=== PATIENT | female | born 1955 | race Caucasian/White ===

== ENCOUNTER 2016-09-17 12:31 | Inpatient (IN) | payer OTHER ==
[~2016-09-17] VITALS: Ht 152.4 cm; Wt 79.4 kg
[~2016-09-17 12:31] MED LIST: BACTRIM DS TAB1 EACH PO
--- NOTE | 2016-09-17 13:38 | ED GENERAL ADULT ---
History of Present Illness General Chief Complaint: General Adult Stated Complaint: SIB MD COLLADO FOR DIRECT ADMIT FOR ABNORMAL LABS Source: patient Exam Limitations: no limitations Vital Signs & Intake/Output Vital Signs & Intake/Output Vital Signs Date Time Temp Pulse Resp B/P B/P Pulse O2 O2 Flow FiO2 Mean Ox Delivery Rate 09/17 1243 97.9 97 18 115/62 97 Room Air Allergies Coded Allergies: No Known Allergies (07/28/15) Reconcile Medications Cholecalciferol (Vitamin D3) 1,000 UNIT TABLET 1 TAB PO DAILY VITAMIN SUPPORT (Reported) Cyanocobalamin (Vitamin B-12) 1,000 MCG TABLET 1 TAB PO DAILY VITAMIN SUPPORT (Reported) Multivits,Ca,Minerals/Iron/FA (Women's Daily Caplet) 27 MG IRON-400 MCG TABLET 1 TAB PO DAILY VITAMIN SUPPORT (Reported) Olmesartan Medoxomil (Benicar) 20 MG TABLET 1 TAB PO DAILY HEART (Reported) Rosuvastatin Calcium (Crestor) 10 MG TABLET 1 TAB PO DAILY CHOLESTEROL ( Reported) Sitagliptin Phos/Metformin HCl (Janumet 50-1,000 MG Tablet) 50 MG-1,000 MG TABLET 1 TAB PO BID DIABETES (Reported) Triage Note: 60 YO FEMALE TO ER STATES SHE WENT SENT IN BY DR COLLADO FOR LOW H/H AND LOW WBC. DENEIS PAIN, JUST "TIRED" Triage Nurses Notes Reviewed? yes Onset: Gradual Duration: constant Timing: recent history Injury Environment: home Severity: moderate Severity Numbers: 5 HPI: Patient is a 60-year-old female with a past medical history of type 2 diabetes, hypertension hyperlipidemia who presented to emergency room with a four-day history of gradual onset of generalized weakness fatigue and pale complexion noted by family members. Patient was evaluated today by primary care Dr. COLLADO in which he noted critical findings of anemia in which patient was strongly advised to be admitted to [facility] for blood transfusion and receive hematology consultation for concerns of pancytopenia Patient denies any fever chills shortness of breath cough or hemoptysis acute blood loss, nausea vomiting. Last bowel movement was today no blood no melena noted. Patient has never received a colonoscopy. Patient also denies any night sweats or unintentional weight loss. (ELAINE GARRETT,SHADIA) Past History Travel History Traveled to [place] past 21 day No Medical History Any Pertinent Medical History? see below for history Cardiovascular: hyperlipidemia Endocrine: diabetes Surgical History Surgical History: non-contributory Psychosocial History What is your primary language Lao Tobacco Use: Never used Family History Hx Contributory? No (SHADIA CLAY) Review of Systems Review of Systems Constitutional: Reports: weakness. EENTM: Reports: no symptoms. Respiratory: Reports: no symptoms. Cardiovascular: Reports: no symptoms. GI: Reports: no symptoms. Genitourinary: Reports: no symptoms. Musculoskeletal: Reports: no symptoms. Skin: Reports: see HPI. Neurological/Psychological: Reports: no symptoms. Hematologic/Endocrine: Reports: no symptoms. Immunologic/Allergic: Reports: no symptoms. All Other Systems: Reviewed and Negative (SHADIA CLAY) Physical Exam Physical Exam General Appearance: no apparent distress, alert, comfortable Rectal: normal rectal tone, heme negative stool Comments: HEENT: Normal EENT exam, extraocular motion intact, no nystagmus. Pupils equally round and reactive to light and accommodation. Nose is atraumatic. External auditory canal and Tympanic membranes clear. Pharynx normal. No swelling or edema. Neck: Supple, no lymphadenopathy, normal range of motion without pain or tenderness Back: Nontender, no CVA tenderness. Cardiovascular: Regular rate and rhythms no murmurs rubs or gallops, normal JVP Respiratory: Chest nontender. No respiratory distress.breath sounds clear to auscultation bilaterally Abdomen: Soft, nontender nondistended, no appreciable organomegaly. Normal bowel sounds. No ascites Extremity: No edema, no calf tenderness to palpation, normal and equal pulses. Neuro: Alert oriented x3, motor sensory normal, Skin: NOTED PALE COMPLEXION, No appreciable rash on exposed skin, skin is warm and dry. Psych: Mood and affect is normal, memory and judgment is normal. Core Measures ACS in differential dx? No CVA/TIA Diagnosis: No Severe Sepsis Present: No Septic Shock Present: No (SHADIA CLAY) Progress Differential Diagnoses I considered the following diagnoses in my evaluation of the patient: [Cancer, anemia, pancytopenia, chronic blood loss,] Plan of Care: Orders Procedure Date/time Status Regular Diet 09/17 D Active Patient Data 09/17 1430 Active LEUKOCYTE POOR (PACKED CELLS) 09/17 1425 Active OXYGEN SETUP (GEN) 09/17 1423 Active Saline Lock 09/17 1423 Active Admit to inpatient 09/17 1423 Active Vital Signs 09/17 1423 Active Activity/Ambulation 09/17 1423 Active Code Status 09/17 1423 Active EKG 09/17 1336 Active PARTIAL THROMBOPLASTIN TIME 09/17 1322 Complete PROTHROMBIN TIME 09/17 1322 Complete COMPREHENSIVE METABOLIC PANEL 09/17 1322 Complete CBC WITHOUT DIFFERENTIAL 09/17 1322 Complete TYPE & SCREEN (NOT X-MATCH) 09/17 1322 Active Current Medications Sig/Michael Start time Last Medication Dose Stop Time Status Admin Sodium Chloride 1,000 ML BOLUS ONE 09/17 1430 AC 09/17 (Normal Saline 0.9%) 09/17 1629 1440 Laboratory Tests 09/17/16 1338: Anion Gap 8, Estimated GFR > 60, BUN/Creatinine Ratio 25.7 H, Glucose 237 H, Calcium 10.7 H, Total Bilirubin 1.8 H, AST 17, ALT 34, Alkaline Phosphatase 80 , Total Protein 6.4, Albumin 3.8, Globulin 2.6, Albumin/Globulin Ratio 1.5, PT 13.0 H, INR 1.24 H, APTT 29, CBC w Diff MAN DIFF ORDERED, RBC 1.38 L, MCV 110.3 H, MCH 37.3 H, RDW 24.3 H, MPV 7.1 L, Gran % 23.8 L, Lymphocytes % 45.7, Monocytes % 30.3 H, Eosinophils % 0.2, Basophils % 0 L, Absolute Granulocytes 0.5 L, Segmented Neutrophils 25 L, Band Neutrophils 2, Absolute Lymphocytes 1.0 L, Lymphocytes 56 H, Monocytes 17 H, Absolute Monocytes 0.7 H, Absolute Eosinophils 0, Absolute Basophils 0, Platelet Estimate INCREASED, Hypochromic-Microcytic 2+, Macrocytic Cells 3+, Stomatocytes FEW, PUBS MCHC 33.9 Patient was hemodynamically stable upon arrival. Patient was in no apparent distress and has unremarkable physical exam and no findings of acute blood loss. DR. YEBOAH DISCUSSED ADMISSION WITH DR COLLADO. Patient signed blood transfusion consent form (SHADIA CLAY) Initial ED EKG: normal p-waves, normal QRS complex, normal sinus rhythm, 94 BPM, NSR (SHADIA CLAY) Departure Departure Disposition: STILL A PATIENT Condition: Critical Clinical Impression Primary Impression: Pancytopenia Secondary Impressions: Weakness Referrals: TIFF COLLADO MD (PCP/Family) Departure Forms: Customer Survey General Discharge Information Admission Note Spoke With: TIFF COLLADO MD Documentation of Exam: Documentation of any treatments & extenuating circumstances including Concerns Regarding Discharge (functional status, medication knowledge or non-compliance, living conditions, etc.) that warrant an admission rather than observation: [DR. COLLADO except the patient under his service to general medicine for concerns of pancytopenia in which patient requires repeat labs, IV blood transfusion, hematology consult. Outpatient treatment at this time due to critical findings of pancytopenia would be medically harmful] (SHADIA CLAY) PA/CORNICE MAKER Co-Sign Statement Statement: ED Attending supervision documentation- x I saw and evaluated the patient. I have also reviewed all the pertinent lab results and diagnostic results. I agree with the findings and the plan of care as documented in the PA's/CORNICE MAKER's documentation. [] I have reviewed the ED Record and agree with the PA's/CORNICE MAKER's documentation. [] Additions or exceptions (if any) to the PAs/CORNICE MAKER's note and plan are summarized below: [] (EDILIA MORTON,TAMY) Critical Care Note Critical Care Note Critical Care Time: 75-104 min (SHADIA CLAY)
[2016-09-17] MEDS ORDERED: JANUMET 50-1,01 EACH PO (13:46)
[2016-09-17] MEDS ORDERED: CRESTOR10 M1 PO (13:47)
[2016-09-17] MEDS ORDERED: VITAMIN D31000 UNI2 PO (13:47)
[2016-09-17] MEDS ORDERED: VITAMIN B-121000 MC3 PO (13:47)
[2016-09-17] MEDS ORDERED: BENICAR20 M1 PO (13:47)
[2016-09-17] MEDS ORDERED: WOMEN'S DAILY1 EAC3 PO (13:48)
[2016-09-17 13:50] LABS: ABSOLUTE BASOPHIL COUNT 0 /CUMM (0.0-0.2); ABSOLUTE EOSINOPHIL COUNT 0 /CUMM (0.0-0.7); RBC DISTRIBUTION WIDTH 24.3 % (11.5-14.5); RED BLOOD CELL CT 1.38 /CUMM (4.20-5.40); WHITE BLOOD CELL COUNT 2.2 /CUMM (4.8-10.8)
[2016-09-17 13:56] LABS: PTT 29 SEC (25-37)
[2016-09-17 13:57] LABS: ABSOLUTE GRANULOCYTE CT 0.5 /CUMM (1.4-6.5); ABSOLUTE MONOCYTE COUNT 0.7 /CUMM (0.10-0.60); BASOPHIL % 0 % (0.0-2.0); EOSINOPHIL % 0.2 % (0-5); GRANULOCYTE % 23.8 % (42.2-75.2); MEAN CORPUSCULAR HGB 37.3 PG (27.0-31.0); MEAN CORPUSCULAR HGB CONC 33.9 G/DL (33.0-37.0); MEAN CORPUSCULAR VOLUME 110.3 FL (81.0-99.0); MEAN PLATELET VOLUME 7.1 FL (7.4-10.4); PLATELET COUNT 603 /CUMM (130-400)
[2016-09-17 13:59] LABS: HEMATOCRIT 15.3 % (37-47)
--- NOTE | 2016-09-17 14:59 | History & Physical ---
WENDY MORTON,EMMETT 09/17/16 1459: General Information and HPI History of Present Illness: Pt is a 60 y/o female with PMH of DM, HTN, and HLD admitted to ED for a drop in H/H to 5.2/15.3. Pt states she has had generalized weakness, fatigue and lethargy over the past four days. States she started feeling weak on Thursday, September 12. Pt's PCP had ordered lab tests which Allergies/Medications Allergies: Coded Allergies: No Known Allergies (07/28/15) Home Med list Cholecalciferol (Vitamin D3) 1,000 UNIT TABLET 1 TAB PO DAILY VITAMIN SUPPORT (Reported) Cyanocobalamin (Vitamin B-12) 1,000 MCG TABLET 1 TAB PO DAILY VITAMIN SUPPORT (Reported) Multivits,Ca,Minerals/Iron/FA (Women's Daily Caplet) 27 MG IRON-400 MCG TABLET 1 TAB PO DAILY VITAMIN SUPPORT (Reported) Olmesartan Medoxomil (Benicar) 20 MG TABLET 1 TAB PO DAILY HEART (Reported) Rosuvastatin Calcium (Crestor) 10 MG TABLET 1 TAB PO DAILY CHOLESTEROL ( Reported) Sitagliptin Phos/Metformin HCl (Janumet 50-1,000 MG Tablet) 50 MG-1,000 MG TABLET 1 TAB PO BID DIABETES (Reported) Past History Travel History Traveled to [place] past 21 day No Medical History Cardiovascular: hyperlipidemia Endocrine: diabetes Surgical History Surgical History: non-contributory Review of Systems Review of Systems Constitutional: Reports: see HPI, malaise, weakness. Denies: chills, diaphoresis, fever, unexplained weight loss. Cardiovascular: Denies: chest pain, orthopena. Respiratory: Denies: cough, short of breath. GI: Denies: abdominal pain, constipation, diarrhea, melena, bloody stool. Genitourinary: Denies: dysuria, frequency, hematuria. Hematologic/Endocrine: Denies: bruising, bleeding. Post Menopausal: Yes Colonoscopy Testing Status: Test never done Exam & Diagnostic Data Last 24 Hrs of Vital Signs/I&O Vital Signs Date Time Temp Pulse Resp B/P B/P Pulse O2 O2 Flow FiO2 Mean Ox Delivery Rate 09/17 1854 99.6 87 18 126/60 95 Room Air 09/17 1759 99.3 90 20 121/58 95 Room Air 09/17 1600 99.4 90 20 146/65 98 Room Air 09/17 1535 99.6 88 20 140/62 97 Room Air 09/17 1505 99.7 09/17 1500 99.7 88 20 122/58 97 Room Air 09/17 1243 97.9 97 18 115/62 97 Room Air Intake & Output 09/18 0800 09/18 0000 09/17 1600 Intake Total 1000 Output Total Balance 1000 Intake, IV 1000 Patient 175 lb 175 lb Weight Weight Reported by Patient Reported by Patient Measurement Method Physical Exam General Appearance Alert, Oriented X3, Cooperative Skin Temp/Moisture Exam: Warm/Dry Sepsis Skin Exam (color): Pale HEENT Atraumatic, PERRLA, EOMI, Mucous Membr. moist/pink, no conjunctival pallor Neck Supple, No JVD, +2 Carotid Pulse wo Bruit Cardiovascular Regular Rate, Normal S1, Normal S2 Lungs Clear to Auscultation Abdomen Normal Bowel Sounds, Soft, No Tenderness Neurological Normal Speech, Sensation Intact, Cranial Nerves 3-12 NL Extremities Normal Pulses Vascular Normal Pulses, normal cap refill Assessment/Plan Assessment: Patient was tranferred to the general medical floor for management of the followin. Bicytopenia with thrombocytosis: She has no hx of any known hemetologic aberations and her symptom onset seems rather abrupt suggesting a new disease process. Patient has hemoglobin 5.2, hematocrit 15.3, white count 2.2 and thrombocytosis. Particularly striking is this patient's MCV of 110.3. Within the patient's history there is no striking cause of her presentation including vitamin deficiency, alcoholism, fever, weight loss, recent infections, or medications. ANC 594 so pt no classically neutopenic and will not require any precautions at this time. * Hematology consult appreciated * Repeat stool guaiac * Iron studies * Flow cytometry * Nutritional studies 3. Hypercalcemia: Patient comes in with calcium 10.7 no intervention necessary at this time. Could be secondary to underlying process leading to anemia. * Continue to monitor 4. Diabetes: Chronic and stable. Patient takes Janumet at home. We will hold at this time * Regular insulin sliding scale * Diabetic diet * Fingerstick 5. HTN: Chronic and stable. * We will give the equivalent to her home Benicar dose 6. Hyperlipidemia: Chronic and stable * Continue Crestor FULL CODE REGULAR DIET ALPS (no chem ppx for anemia) As Ranked By This Provider Problem List: 1. Pancytopenia Core Measures/Miscellaneous Acute Coronary Syndrome ACS Diagnosis: No Cerebrovascular Accident CVA/TIA Diagnosis: No Congestive Heart Failure CHF Diagnosis: No VTE (View Protocol) VTE Risk Factors: Age > 40 [facility] d/t: No contraindications No VTE Pharm Prophylaxis d/t: Medical contraindication VTE Diagnosis: No VTE Type: NONE VTE Confirmed by (Test): NONE Sepsis (View Protocol) Severe Sepsis Present: No Septic Shock Septic Shock Present: No Miscellaneous Documentation Attending Case Discussed With: IVY SCHMITT MD Primary Care Physician: TIFF COLLADO MD Level of Patient Care: General Surgical Consults Needed: Consulting Specialty: Hematology/Oncology JOSEPH PORTILLO MD 09/17/16 1600: General Information and HPI MD Statement: I have seen and personally examined LITA ROD and documented this H&P. The patient is a 60 year old F who presented with a patient stated chief complaint of [anemia]. Source of Information: patient, family Exam Limitations: no limitations Resident Review Statement Resident Statement: examined this patient Other Findings: This is a 54-year-old female with past medical history of diabetes, hyperlipidemia, and hypertension, who was sent in by Dr. Collado, her PCP, for abnormal lab work. Per patient, starting on 09/12/2016 she noted profound fatigue and exhaustion. Symptoms continued to worsen and her family noted her to be pale as well. On 12/13/2016 patient did some blood work per her PCP suggestion. Results were recieved today and her PCP noted anemia and leukopenia and recommended patient go to the hospital for transfusion and further workup. Patient denies any recent illness. About 3 months ago she had an ear infection and some sinusitis. She has hx of recurrent ear infections and is status post myringotomy. 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 Last use of antibiotic for sinus infection was about 3 months ago. She has been previously treated with amoxicillin and Augmentin. Patient denies any recent travel, sick contacts, or tick exposure. She states her diet is varied; denies vegan/vegeterian. Denies change in her medication regimen in many years. Denies alcohol or drug use. Only pertinent surgical history is myringotomy. Denies any excessive bleeding during or of her children. Denies any family history for clotting or bleeding disorders. One daughter has multiple sclerosis. Patient denies any shortness of breath, chest pain, headache, nausea, vomiting, diarrhea, melena, bright red blood per rectum, hematuria, or hematemesis. In assessment, this is a 60-year-old female with past medical history significant for diabetes, hyperlipidemia, hypertension, who comes in for chief complaint of malaise and found to have profound anemia, leukopenia and thrombocytosis. She does not have any history of previous blood disorders. Differential includes processes that cause bone marrow infiltration including hematologic malignancies such as myelodysplastic syndrome multiple myeloma or infectious causes, bone marrow aplasia including vitamin deficiencies, HIV, parvovirus or sequestration due to cirrhosis or autoimmune disorders. In emergency department patient received 2 units of PRBC transfusion and was guaiac negative. Vitals in ED: 97.9, 97, 18, 115/62, 97. CBC: White count 2.2, hemoglobin 5.2, hematocrit 15.3, platelets 603. MCV 110.3 , 2 bands BEP: Sodium 136, BUN 18, creatinine 0.7. Calcium 10.7, T bili 1.8, negative AST ALT and alkaline phosphatase. PT 13, INR 1.24. Hemoccult - EKG: Rate 94, normal sinus rhythm - PLAN 1. Bicytopenia with thrombocytosis: She has no hx of any known hemetologic aberations and her symptom onset seems rather abrupt suggesting a new disease process. Patient has hemoglobin 5.2, hematocrit 15.3, white count 2.2 and thrombocytosis. Particularly striking is this patient's MCV of 110.3. Within the patient's history there is no striking cause of her presentation including vitamin deficiency, alcoholism, fever, weight loss, recent infections, or medications. ANC 594 so pt no classically neutopenic and will not require any precautions at this time. * Hematology consult appreciated * Repeat stool guaiac * Iron studies * Flow cytometry * Nutritional studies 3. Hypercalcemia: Patient comes in with calcium 10.7 no intervention necessary at this time. Could be secondary to underlying process leading to anemia. * Continue to monitor 4. Diabetes: Chronic and stable. Patient takes Janumet at home. We will hold at this time * Regular insulin sliding scale * Diabetic diet * Fingerstick 5. HTN: Chronic and stable. * We will give the equivalent to her home Benicar dose 6. Hyperlipidemia: Chronic and stable * Continue Crestor FULL CODE REGULAR DIET ALPS (no chem ppx for anemia) HAY MORTON,[facility] 09/18/16 0949: Core Measures/Miscellaneous Miscellaneous Documentation Patient sees these Specialists None Attending MD Review Statement Attending Statement Attending MD Statement: examined this patient, discuss w/resident/PA/MULTIPLE SPINDLE ROUTER OPERATOR, agreed w/resident/PA/MULTIPLE SPINDLE ROUTER OPERATOR, reviewed EMR data (avail)
[2016-09-17 18:54] VITALS: BP 126/60
[2016-09-18 06:27] VITALS: BP 112/62
--- NOTE | 2016-09-18 07:36 | PN- Housestaff ---
Subjective Follow-up For: Pancytopenia Subjective: Pt states she feels much better today after receiving the transfusions. Was having concerns over who will see her while she is in the hospital. Pt does not want to be stuck multiple times and asks that her blood draws post transfusion be done simultaneoulsy as the other labs ordered. Pt denies chest pain, SOB, fever, chills (however does feel cold due to air conditioning), abdominal pain, n/v/c/d, dysuria/hematuria. Review of Systems Constitutional: Denies: see HPI. Objective Last 24 Hrs of Vital Signs/I&O Vital Signs Date Time Temp Pulse Resp B/P B/P Pulse O2 O2 Flow FiO2 Mean Ox Delivery Rate 09/19 0701 99.8 96 20 142/72 92 Room Air 09/18 2247 99.8 93 20 122/58 94 09/18 1417 98.7 90 20 124/52 92 Room Air 09/18 1006 112/62 Intake & Output 09/19 1600 09/19 0800 09/19 0000 Intake Total 10 350 Output Total 300 350 Balance -290 0 Intake, Blood 350 Product Intake, IV 10 Output, Urine 300 350 Physical Exam General Appearance: Alert, Oriented X3, Cooperative, No Acute Distress HEENT: Atraumatic, PERRLA, EOMI, Mucous Membr. moist/pink Cardiovascular: Regular Rate, Normal S1, Normal S2 Lungs: Clear to Auscultation Abdomen: Normal Bowel Sounds, Soft, No Tenderness Extremities: No Edema, Normal Pulses, No Tenderness/Swelling Assessment/Plan Assessment: 60-year-old female with past medical history significant for diabetes, hyperlipidemia, hypertension, who comes in for chief complaint of malaise and found to have profound anemia, leukopenia and thrombocytosis. 1. Bicytopenia with thrombocytosis: She has no hx of any known hemetologic aberations and her symptom onset seems rather abrupt suggesting a new disease process. Patient has hemoglobin 5.2, hematocrit 15.3, white count 2.2 and thrombocytosis. Particularly striking is this patient's MCV of 110.3. Within the patient's history there is no striking cause of her presentation including vitamin deficiency, alcoholism, fever, weight loss, recent infections, or medications. ANC 594 so pt no classically neutopenic and will not require any precautions at this time. * Hematology consult appreciated * Repeat stool guaiac * Iron studies * Flow cytometry * Nutritional studies 3. Hypercalcemia: Patient comes in with calcium 10.7 no intervention necessary at this time. Could be secondary to underlying process leading to anemia. * Continue to monitor 4. Diabetes: Chronic and stable. Patient takes Janumet at home. We will hold at this time * Regular insulin sliding scale * Diabetic diet * Fingerstick 5. HTN: Chronic and stable. * We will give the equivalent to her home Benicar dose 6. Hyperlipidemia: Chronic and stable * Continue Crestor FULL CODE REGULAR DIET ALPS (no chem ppx for anemia) Problem List: 1. Pancytopenia Pain Ratin Pain Location: none Pain Goal: Remain pain free Pain Plan: none Tomorrow's Labs & Rationales: cbc bep Consulting Request: Consulting Specialty: Hematology/Oncology
--- NOTE | 2016-09-18 08:20 | Cons- Hematology ---
General Information and HPI Consulting Request Date of Consult: 09/18/16 Requested By: IVY SCHMITT MD Reason for Consult: Leukopenia/anemia Source of Information: patient Exam Limitations: no limitations History of Present Illness: Ms. Anderson is a 60-year-old female with history of diabetes mellitus who presented to the hospital after being seen by her PCP, Dr. Hutchison, for 1 week of fatigue and dyspnea. She started having fatigue on Thursday and worsened over the week. She had blood work on on Thursday this week and was seen by Dr. Hutchison. Due to abnormalities in her blood work, she was referred to ED. Besides fatigue and dyspnea, she denies any other symptoms. She has not had any fever, chills, night sweats, chest pain, shortness of breath, abdominal pain, diarrhea, constipation, bleeding, or pain. She denies any melena, hematochezia, hematuria , vaginal bleeding, hemoptysis, or hematemesis. She has no bruising. She has not started on any new medications. She has not had any recent travel. She has not had any sick contact. She denies any bug bites. In the ED, she was noted to have a WBC of 2.2, Hgb 5.2, Hct 15.3, MCV 110, and platelet of 603,000. Differential noted elevated monocytes at 30%. She was transfused with 2 units of pRBC. She feels better this morning. She denies any other symptoms. She takes vitamin B12 and multivitamins. Allergies/Medications Allergies: Coded Allergies: No Known Allergies (07/28/15) Home Med List: Cholecalciferol (Vitamin D3) 1,000 UNIT TABLET 1 TAB PO DAILY VITAMIN SUPPORT (Reported) Cyanocobalamin (Vitamin B-12) 1,000 MCG TABLET 1 TAB PO DAILY VITAMIN SUPPORT (Reported) Multivits,Ca,Minerals/Iron/FA (Women's Daily Caplet) 27 MG IRON-400 MCG TABLET 1 TAB PO DAILY VITAMIN SUPPORT (Reported) Olmesartan Medoxomil (Benicar) 20 MG TABLET 1 TAB PO DAILY HEART (Reported) Rosuvastatin Calcium (Crestor) 10 MG TABLET 1 TAB PO DAILY CHOLESTEROL ( Reported) Sitagliptin Phos/Metformin HCl (Janumet 50-1,000 MG Tablet) 50 MG-1,000 MG TABLET 1 TAB PO BID DIABETES (Reported) Current Medications: Current Medications Sig/Michael Start time Last Medication Dose Route Stop Time Status Admin Acetaminophen 650 MG Q6P PRN 09/17 1630 AC 09/18 PO 0357 Acetaminophen 1,000 MG Q6P PRN 09/17 1630 AC IV Acetaminophen 650 MG ONCE ONE 09/17 1515 DC 09/17 PO 09/17 1516 1505 Acetaminophen 0 .STK-MED ONE 09/17 1509 DC PO Atorvastatin Calcium 40 MG 1700 09/18 1700 AC PO Insulin Aspart 0 TIDAC 09/18 0800 CAN SC Insulin Aspart 0 TIDAC 09/18 0800 AC SC Losartan Potassium 50 MG DAILY 09/18 1000 AC PO Morphine Sulfate 2 MG Q4P PRN 09/17 1630 AC IV Sodium Chloride 1,000 ML BOLUS ONE 09/17 1430 DC 09/17 IV 09/17 1629 1440 Review of Systems Review of Systems Constitutional: Reports: malaise, weakness. Denies: chills, diaphoresis, fever, unexplained weight loss. EENTM: Denies: blurred vision, double vision, visual changes, epistaxis. Cardiovascular: Reports: palpitations (with exertion). Denies: chest pain, edema, orthopena, peripheral edema, syncope. Respiratory: Denies: cough, hemoptysis, orthopnea, short of breath. GI: Denies: abdominal pain, bloating, constipation, diarrhea, melena, nausea, bloody stool, vomiting. Genitourinary: Denies: dysuria, hematuria. Musculoskeletal: Denies: back pain, joint pain. Skin: Denies: erythema, jaundice, rash. Neurological/Psychological: Denies: anxiety, cognitive dysfunction, confusion, depressed, dementia. Hematologic/Endocrine: Denies: bruising, bleeding. Immunologic/Allergic: Denies: lymphadenopathy. All Other Systems: Reviewed and Negative Past History Travel History Traveled to [place] past 21 day No Medical History Neurological: NONE EENT: allergies Cardiovascular: hypertension, hyperlipidemia Respiratory: NONE Hepatic: NONE Renal: NONE Musculoskeletal: NONE Psychiatric: NONE Endocrine: diabetes Blood Disorders: anemia Cancer(s): NONE FABRIC MACHINE OPERATOR/Reproductive: NONE Surgical History Surgical History: non-contributory Psychosocial History Where Do You Live? Home Services at Home: None Smoking Status: Never Smoked ETOH Use: occasional use Illicit Drug Use: denies illicit drug use Other Social History: She works in the [employer] system. Exam & Diagnostic Data Vital Signs and I&O Vital Signs Date Time Temp Pulse Resp B/P B/P Pulse O2 O2 Flow FiO2 Mean Ox Delivery Rate 09/18 0627 98.2 83 20 112/62 94 Room Air 09/17 1854 99.6 87 18 126/60 95 Room Air 09/17 1759 99.3 90 20 121/58 95 Room Air 09/17 1600 99.4 90 20 146/65 98 Room Air 09/17 1535 99.6 88 20 140/62 97 Room Air 09/17 1505 99.7 09/17 1500 99.7 88 20 122/58 97 Room Air 09/17 1243 97.9 97 18 115/62 97 Room Air Intake & Output 09/18 0800 09/18 0000 09/17 1600 Intake Total 700 1000 Output Total Balance 700 1000 Intake, IV 350 1000 Intake, Oral 350 Patient 79.379 kg 79.379 kg Weight Weight Reported by Patient Reported by Patient Measurement Method Physical Exam General Appearance: well developed/nourished, no apparent distress, alert, awake , comfortable Head: atraumatic, normal appearance Eyes: Bilateral: PERRL. Ears, Nose, Throat: normal pharynx Neck: normal inspection, supple Respiratory: normal breath sounds, chest non-tender, no respiratory distress Cardiovascular: regular rate/rhythm, murmur Gastrointestinal: normal bowel sounds, soft, non-tender, nodularity in upper abdomen Back: normal inspection Extremities: no edema, right thumb with bruising Neurologic/Psych: awake, alert, oriented x 3 Cranial Nerves: normal hearing, normal speech Skin: intact, warm/dry Lymphatic: no adenopathy in the cervical, supraclavicular, axilla, inguinal regions. Last 48 Hours of Lab Results: Laboratory Tests 09/17 1338 Chemistry Sodium (137 - 145 mmol/L) 136 L Potassium (3.5 - 5.1 mmol/L) 4.6 Chloride (98 - 107 mmol/L) 103 Carbon Dioxide (22 - 30 mmol/L) 25 Anion Gap (5 - 16) 8 BUN (7 - 17 mg/dL) 18 H Creatinine (0.5 - 1.0 mg/dL) 0.7 Estimated GFR (>60 ml/min) > 60 BUN/Creatinine Ratio (7 - 25 %) 25.7 H Glucose (65 - 99 mg/dL) 237 H Calcium (8.4 - 10.2 mg/dL) 10.7 H Iron (37 - 170 ug/dL) 115 TIBC (265 - 497 ug/dL) 370 Ferritin (11.1 - 264 ng/mL) 265.0 H Total Bilirubin (0.2 - 1.3 mg/dL) 1.8 H AST (14 - 36 U/L) 17 ALT (9 - 52 U/L) 34 Alkaline Phosphatase (<127 U/L) 80 Lactate Dehydrogenase (313 - 618 U/L) 548 Total Protein (6.3 - 8.2 g/dL) 6.4 Albumin (3.5 - 5.0 g/dL) 3.8 Globulin (1.9 - 4.2 gm/dL) 2.6 Albumin/Globulin Ratio (1.1 - 2.2 %) 1.5 Vitamin B12 (239 - 931 pg/mL) > 1000 H Folate (2.76 - 20.0 ng/mL) > 20.0 H Coagulation PT (9.4 - 12.5 SEC) 13.0 H INR (0.90 - 1.19) 1.24 H APTT (25 - 37 SEC) 29 Hematology CBC w Diff MAN DIFF ORDERED WBC (4.8 - 10.8 /CUMM) 2.2 L RBC (4.20 - 5.40 /CUMM) 1.38 L Hgb (12.0 - 16.0 G/DL) 5.2 *L Hct (37 - 47 %) 15.3 *L MCV (81.0 - 99.0 FL) 110.3 H MCH (27.0 - 31.0 PG) 37.3 H RDW (11.5 - 14.5 %) 24.3 H Plt Count (130 - 400 /CUMM) 603 H MPV (7.4 - 10.4 FL) 7.1 L Gran % (42.2 - 75.2 %) 23.8 L Lymphocytes % (20.5 - 51.1 %) 45.7 Monocytes % (1.7 - 9.3 %) 30.3 H Eosinophils % (0 - 5 %) 0.2 Basophils % (0.0 - 2.0 %) 0 L Absolute Granulocytes (1.4 - 6.5 /CUMM) 0.5 L Segmented Neutrophils (42.2 - 75.2 %) 25 L Band Neutrophils (0.0 - 5.0 %) 2 Absolute Lymphocytes (1.2 - 3.4 /CUMM) 1.0 L Lymphocytes (20.5 - 51.1 %) 56 H Monocytes (1.7 - 9.3 %) 17 H Absolute Monocytes (0.10 - 0.60 /CUMM) 0.7 H Absolute Eosinophils (0.0 - 0.7 /CUMM) 0 Absolute Basophils (0.0 - 0.2 /CUMM) 0 Platelet Estimate (ADEQUATE) INCREASED Hypochromic-Microcytic 2+ Macrocytic Cells 3+ Stomatocytes FEW PUBS MCHC (33.0 - 37.0 G/DL) 33.9 Retic Count (0.5 - 2.0 %) 0.98 Assessment/Plan Assessment: Ms. Anderson is a 60-year-old female with history of diabetes who presented to the hospital with symptomatic anemia and leukopenia. Besides fatigue, she is asymptomatic. She has no B symptoms such as weight loss, night sweats, fevere, or decreased appetite. She reports no new mass or pain. She has no evidence of bleeding. On presentation she has WBC of 2200 with 30% monocytes, Hgb 5.2 g/dL, Hct 15.3%, and platelet of 603,000. Peripheral blood smear was reviewed yesterday and noted atypical lymphocytes, increase platelets with few giant platelets, anisocytosis, and poikilocytosis. Her reticulocytes are low. This seems to be related to a marrow suppressive effect. She has no obvious nutritional deficiency with vitamin B12, folate, and iron studies being normal. She has no significant evidence of hemolysis. LDH is normal. Bilirubin is elevated at 1.8. Given all these finding, there may be an underlying marrow process. She may benefit from bone marrow biopsy. The elevated platelet count is concerning for a myeloproliferative disorder. The severe anemia with low reticulocytes is concerning for marrow suppression. Her examination noted some nodularity in the abdomen. It may be reasonable to do imaging studies to evaluate for other malignant process. Recommendations: Leukopenia/severe anemia: 1. Check flow cytometry 2. Check SPEP, serum free light chains, immunoglobulins level, and UPEP 3. Consider imaging scan of the chest/abdomen/pelvis (CT) 4. Obtain Bone marrow biopsy 5. Obtain previous blood work records from Dr. Hutchison 6. Check TSH 7. Check hepatitis panel, CMV, EBV, and parvo-B12 Problem List: 1. Leukopenia 2. Anemia 3. Thrombocytosis Other Findings/Comments: Please call [phone] with any questions or concerns. Consult Acknowledgment - Thank you for your consult request.
[2016-09-18 08:36] LABS: PT 12.1 SEC (9.4-12.5)
[2016-09-18 09:08] LABS: ABSOLUTE BASOPHIL COUNT 0 /CUMM (0.0-0.2); ABSOLUTE EOSINOPHIL COUNT 0 /CUMM (0.0-0.7); ABSOLUTE GRANULOCYTE CT 0.9 /CUMM (1.4-6.5); ABSOLUTE LYMPH COUNT 0.8 /CUMM (1.2-3.4); ABSOLUTE MONOCYTE COUNT 0.8 /CUMM (0.10-0.60); WHITE BLOOD CELL COUNT 2.5 /CUMM (4.8-10.8)
[2016-09-18 09:32] LABS: BASOPHIL % 0.3 % (0.0-2.0); EOSINOPHIL % 0 % (0-5); GRANULOCYTE % 35.1 % (42.2-75.2); MEAN CORPUSCULAR HGB CONC 33.5 G/DL (33.0-37.0); MEAN PLATELET VOLUME 7.1 FL (7.4-10.4); PLATELET COUNT 475 /CUMM (130-400); RBC DISTRIBUTION WIDTH 34.9 % (11.5-14.5)
[2016-09-18 09:42] LABS: HEMATOCRIT 20.5 % (37-47); MEAN CORPUSCULAR HGB 31.1 PG (27.0-31.0); MEAN CORPUSCULAR VOLUME 92.8 FL (81.0-99.0); RED BLOOD CELL CT 2.22 /CUMM (4.20-5.40)
--- NOTE | 2016-09-18 09:42 | Admission Certification ---
Admission Certification Certification Statement - As attending physician, I certify that at the time of - admission, based on clinical presentation, severity of - symptoms, need for further diagnostic testing and - therapeutic interventions, and risk of adverse outcomes - without in-hospital treatment, in my clinical assessment, - this patient requires an acute hospital stay for a minimum - of two nights or longer. I have also considered psychsocial - factors such as support system, advanced age, financial - issues, cognitive issues, and failed out-patient treatments, - past re-admission history, safety of patient, and lack of - compliance as applicable. Specific rationale supporting this admission is: Symptomatic anemia and leukopenia
--- NOTE | 2016-09-18 09:49 | PN- Att Addend ---
Attending Addendum Attending Brief Note Patient this morning appears upset for not being able to see the doctors that she would prefer to see. After prolonged discussion patient was more cooperative and amiable to the plan. General Appearance: Alert, No Acute Distress Skin: Grossly normal HEENT: PEERLA Neck: Supple, No JVD Cardiovascular: Regular Rate, Normal S1, Normal S2, No Murmurs Lungs: Clear to Auscultation, Normal Air Movement Abdomen: Normal Bowel Sounds, Soft, No Tenderness Neurological: Normal Speech, Strength at 5/5 X4 Ext, Cranial Nerves 3-12 NL, Reflexes 2+ Extremities: No Clubbing, No Cyanosis, No Edema Vascular: Normal Pulses Assessment 60-year-old female with history of diabetes, hypertension, dyslipidemia who was in his usual state of good health presented with sudden onset weakness 4 days back. She was sent in by Dr. Hutchison after her blood work returned back as severe anemia. She is demonstrating signs of bone marrow suppression that could be primarily bone marrow versus secondary causes like CMV, EBV, parvovirus. Anemia appears rather acute and with signs of hemolysis. Patient has been evaluated by hematology who has recommended flow cytology and other blood work. We will plan to keep hemoglobin goal above 7 and await for pending workup. Plan Transfuse 1 more unit PRBC Repeat stool guaiac Follow hematology recommendations Follow hemolysis workup Continue other home medication DVT prophylaxis Current Medications Sig/Michael Start time Last Medication Dose Route Stop Time Status Admin Acetaminophen 650 MG Q6P PRN 09/17 1630 AC 09/18 PO 0357 Acetaminophen 1,000 MG Q6P PRN 09/17 1630 AC IV Acetaminophen 650 MG ONCE ONE 09/17 1515 DC 09/17 PO 09/17 1516 1505 Acetaminophen 0 .STK-MED ONE 09/17 1509 DC PO Atorvastatin Calcium 40 MG 1700 09/18 1700 AC PO Insulin Aspart 0 TIDAC 09/18 0800 CAN SC Insulin Aspart 0 TIDAC 09/18 0800 AC 09/18 SC 0844 Losartan Potassium 50 MG DAILY 09/18 1000 AC PO Morphine Sulfate 2 MG Q4P PRN 09/17 1630 AC IV Sodium Chloride 1,000 ML BOLUS ONE 09/17 1430 DC 07 IV 09/17 1629 1440 Laboratory Tests 09/18 09/18 0734 0649 Chemistry Sodium (137 - 145 mmol/L) 137 Potassium (3.5 - 5.1 mmol/L) 4.7 Chloride (98 - 107 mmol/L) 105 Carbon Dioxide (22 - 30 mmol/L) 25 Anion Gap (5 - 16) 8 BUN (7 - 17 mg/dL) 18 H Creatinine (0.5 - 1.0 mg/dL) 0.7 Estimated GFR (>60 ml/min) > 60 BUN/Creatinine Ratio (7 - 25 %) 25.7 H Total Bilirubin (0.2 - 1.3 mg/dL) 2.4 H Direct Bilirubin (< 0.4 mg/dL) 0.2 AST (14 - 36 U/L) 16 ALT (9 - 52 U/L) 38 Alkaline Phosphatase (<127 U/L) 81 Total Protein (6.3 - 8.2 g/dL) 5.7 L Albumin (3.5 - 5.0 g/dL) 3.3 L Coagulation PT (9.4 - 12.5 SEC) 12.1 INR (0.90 - 1.19) 1.15 Hematology CBC w Diff MAN DIFF ORDERED WBC (4.8 - 10.8 /CUMM) Pending RBC (4.20 - 5.40 /CUMM) Pending Hgb (12.0 - 16.0 G/DL) Pending Hct (37 - 47 %) Pending MCV (81.0 - 99.0 FL) Pending MCH (27.0 - 31.0 PG) Pending RDW (11.5 - 14.5 %) Pending Plt Count (130 - 400 /CUMM) Pending MPV (7.4 - 10.4 FL) Pending Gran % (42.2 - 75.2 %) Pending Lymphocytes % (20.5 - 51.1 %) Pending Monocytes % (1.7 - 9.3 %) Pending Eosinophils % (0 - 5 %) Pending Basophils % (0.0 - 2.0 %) Pending Absolute Granulocytes (1.4 - 6.5 /CUMM) Pending Segmented Neutrophils (42.2 - 75.2 %) Pending Absolute Lymphocytes (1.2 - 3.4 /CUMM) Pending Absolute Monocytes (0.10 - 0.60 /CUMM) Pending Absolute Eosinophils (0.0 - 0.7 /CUMM) Pending Absolute Basophils (0.0 - 0.2 /CUMM) Pending PUBS MCHC (33.0 - 37.0 G/DL) Pending Miscellaneous Flow Cytometry Specimen Pending Serology HIV 1&2 Ab Western Blot (NONREACTIVE) NONREACTIVE 09/17 1338 Chemistry Sodium (137 - 145 mmol/L) 136 L Potassium (3.5 - 5.1 mmol/L) 4.6 Chloride (98 - 107 mmol/L) 103 Carbon Dioxide (22 - 30 mmol/L) 25 Anion Gap (5 - 16) 8 BUN (7 - 17 mg/dL) 18 H Creatinine (0.5 - 1.0 mg/dL) 0.7 Estimated GFR (>60 ml/min) > 60 BUN/Creatinine Ratio (7 - 25 %) 25.7 H Glucose (65 - 99 mg/dL) 237 H Calcium (8.4 - 10.2 mg/dL) 10.7 H Iron (37 - 170 ug/dL) 115 TIBC (265 - 497 ug/dL) 370 Ferritin (11.1 - 264 ng/mL) 265.0 H Total Bilirubin (0.2 - 1.3 mg/dL) 1.8 H AST (14 - 36 U/L) 17 ALT (9 - 52 U/L) 34 Alkaline Phosphatase (<127 U/L) 80 Lactate Dehydrogenase (313 - 618 U/L) 548 Total Protein (6.3 - 8.2 g/dL) 6.4 Albumin (3.5 - 5.0 g/dL) 3.8 Globulin (1.9 - 4.2 gm/dL) 2.6 Albumin/Globulin Ratio (1.1 - 2.2 %) 1.5 Vitamin B12 (239 - 931 pg/mL) > 1000 H Folate (2.76 - 20.0 ng/mL) > 20.0 H Coagulation PT (9.4 - 12.5 SEC) 13.0 H INR (0.90 - 1.19) 1.24 H APTT (25 - 37 SEC) 29 Hematology CBC w Diff MAN DIFF ORDERED WBC (4.8 - 10.8 /CUMM) 2.2 L RBC (4.20 - 5.40 /CUMM) 1.38 L Hgb (12.0 - 16.0 G/DL) 5.2 *L Hct (37 - 47 %) 15.3 *L MCV (81.0 - 99.0 FL) 110.3 H MCH (27.0 - 31.0 PG) 37.3 H RDW (11.5 - 14.5 %) 24.3 H Plt Count (130 - 400 /CUMM) 603 H MPV (7.4 - 10.4 FL) 7.1 L Gran % (42.2 - 75.2 %) 23.8 L Lymphocytes % (20.5 - 51.1 %) 45.7 Monocytes % (1.7 - 9.3 %) 30.3 H Eosinophils % (0 - 5 %) 0.2 Basophils % (0.0 - 2.0 %) 0 L Absolute Granulocytes (1.4 - 6.5 /CUMM) 0.5 L Segmented Neutrophils (42.2 - 75.2 %) 25 L Band Neutrophils (0.0 - 5.0 %) 2 Absolute Lymphocytes (1.2 - 3.4 /CUMM) 1.0 L Lymphocytes (20.5 - 51.1 %) 56 H Monocytes (1.7 - 9.3 %) 17 H Absolute Monocytes (0.10 - 0.60 /CUMM) 0.7 H Absolute Eosinophils (0.0 - 0.7 /CUMM) 0 Absolute Basophils (0.0 - 0.2 /CUMM) 0 Platelet Estimate (ADEQUATE) INCREASED Hypochromic-Microcytic 2+ Macrocytic Cells 3+ Stomatocytes FEW PUBS MCHC (33.0 - 37.0 G/DL) 33.9 Retic Count (0.5 - 2.0 %) 0.98 Vital Signs Date Time Temp Pulse Resp B/P B/P Pulse O2 O2 Flow FiO2 Mean Ox Delivery Rate 09/18 0627 98.2 83 20 112/62 94 Room Air 07/12 1854 99.6 87 18 126/60 95 Room Air 07/12 1759 99.3 90 20 121/58 95 Room Air 07/12 1600 99.4 90 20 146/65 98 Room Air 07/12 1535 99.6 88 20 140/62 97 Room Air 07/12 1505 99.7 07/12 1500 99.7 88 20 122/58 97 Room Air 07/12 1243 97.9 97 18 115/62 97 Room Air
[2016-09-18 14:17] VITALS: BP 124/52
--- NOTE | 2016-09-18 16:35 | CT SCAN REPORT ---
EXAMINATION: CT CHEST WITH IV CONTRAST CT ABDOMEN AND PELVIS WITH IV CONTRAST CLINICAL INFORMATION: 60-year-old female with neutropenia. CBC abnormalities. Evaluate for tumor. COMPARISON: None TECHNIQUE: Multidetector CT imaging examination of the chest, abdomen and pelvis was performed with intravenous administration of 95 mL Optiray 320. Axial images are displayed at 5 mm and 0.625 mm slice thickness. Coronal and sagittal reformatted images were generated at the technologist's workstation and submitted for review. DLP: 697 mGy-cm FINDINGS: CHEST - LUNGS and PLEURA: Trachea and central airways are widely patent and normal in caliber. There are 0.2 cm calcified granulomas of the posterior segment of the right upper lobe and posterior right lower lobe. There is likely a 0.2 cm calcified nodule in the lingula (image 213, series 4) as well as a noncalcified 0.3 cm nodule in the lingula (image 246, series 4). A smoothly marginated 0.7 x 1.1 x 0.4 cm nodule along the minor fissure is very likely a perifissural lymph node (image 190, series 4). There is mild atelectasis in the dependent aspect of each lower lobe. No pulmonary mass, consolidation or pleural effusion. MEDIASTINUM: The heart size is normal. Pulmonary arteries are normal in caliber. Mild atherosclerosis of the thoracic aorta without aneurysm. No pericardial effusion. The esophagus is unremarkable. There is a large, multinodular thyroid gland. LYMPHATICS: No pathologic sized axillary, hilar or mediastinal lymph nodes. CHEST WALL/BONES: Mild spondylosis of the thoracic spine. No suspicious lytic or blastic bone lesions. ABDOMEN AND PELVIS - HEPATOBILIARY: 1.6 cm hypodense subcapsular lesion at the hepatic dome is not well characterized on this single phase contrast-enhanced exam; it could represent a cavernous hemangioma. The right hepatic lobe is 21.3 cm in craniocaudal dimension. There is no intrahepatic bile duct dilatation. The gallbladder is surgically absent. PANCREAS: The pancreas is atrophied. No pancreatic ductal dilatation or peripancreatic edema. SPLEEN: Normal. No splenomegaly or focal splenic lesion. ADRENAL GLANDS: Normal. KIDNEYS, URETERS, BLADDER: Kidneys are normal in size and enhance symmetrically. No nephrolithiasis or hydronephrosis. At the upper pole the left kidney, there is a 0.6 cm focus of fat attenuation, consistent with angiomyolipoma. The ureters and urinary bladder unremarkable. GASTROINTESTINAL TRACT: Stomach is normal. Bowel loops are normal in caliber. The appendix is normal. There are a few scattered diverticula of the colon without diverticulitis. No ascites. ABDOMINAL WALL: A small fat-containing umbilical hernia measures 1.7 cm wide. VASCULAR: Mild atherosclerosis of the abdominal aorta without aneurysm. The left renal vein has a retroaortic course. LYMPH NODES: No pathologic sized lymph nodes within the abdomen or pelvis. PELVIC VISCERA: The anteflexed uterus is unremarkable. No adnexal mass or pelvic free fluid. OSSEOUS STRUCTURES: Multilevel facet arthropathy of the lumbar spine. There is a small Schmorl's node at this L5 superior endplate and vacuum disc degeneration is present at L5-S1. Scattered nonaggressive sclerotic foci and pelvic bones, L2 vertebral body and L5 spinous process compatible with bone islands. No aggressive lesions. IMPRESSION: 1. Enlarged, multinodular thyroid gland. Correlate with thyroid function tests, and thyroid ultrasound, as deemed clinically appropriate. 2. A smoothly marginated 1.1 x 0.7 x 0.4 cm nodule along the minor fissure is very likely a perifissural lymph node. Nevertheless, recommend noncontrast chest CT follow-up in 6 months to ensure stability. 3. 1.6 cm or hypodense subcapsular lesion near the hepatic dome is probably a cavernous hemangioma but is not well characterized on this single phase imaging exam. 4. No evidence of multiple myeloma. No aggressive osseous lesions.
[2016-09-18 20:04] LABS: ABSOLUTE BASOPHIL COUNT 0 /CUMM (0.0-0.2); ABSOLUTE EOSINOPHIL COUNT 0 /CUMM (0.0-0.7); ABSOLUTE LYMPH COUNT 1.3 /CUMM (1.2-3.4); ABSOLUTE MONOCYTE COUNT 0.6 /CUMM (0.10-0.60); BASOPHIL % 1.1 % (0.0-2.0); EOSINOPHIL % 0.1 % (0-5); GRANULOCYTE % 33.7 % (42.2-75.2); HEMATOCRIT 24.4 % (37-47); MEAN CORPUSCULAR HGB 30.9 PG (27.0-31.0); MEAN CORPUSCULAR HGB CONC 33.6 G/DL (33.0-37.0); MEAN PLATELET VOLUME 7.1 FL (7.4-10.4); PLATELET COUNT 584 /CUMM (130-400); RBC DISTRIBUTION WIDTH 33.1 % (11.5-14.5); RED BLOOD CELL CT 2.65 /CUMM (4.20-5.40); WHITE BLOOD CELL COUNT 2.9 /CUMM (4.8-10.8)
[2016-09-18 22:47] VITALS: BP 122/58
[2016-09-19 07:01] VITALS: BP 142/72
--- NOTE | 2016-09-19 08:21 | Patient Discharge Instructions ---
Discharge Instructions General Discharge Information You were seen/treated for: 1. anemia You had these procedures: 1. 2 unit pRBC transfusion Watch for these problems: 1. Fever 2. Bleeding 3. Chest pain 4. Shortness of breath Special Instructions: 1. Follow up with your heme/onc doctor in one week 2. Follow up with your PCP in one week 3. Obtain a CBC on 09/22/2016 4. You will need a bone marrow biopsy in the near future. Follow up with your heme/onc doctor Diet Continue normal diet: Yes Activity Activity Self Limited: Yes Acute Coronary Syndrome Inclusion Criteria At DC or during hospital stay patient has or had the following: ACS DIAGNOSIS No Discharge Core Measures Meds if any: Prescribed or Continued at Discharge Meds if any: NOT Prescribed or Continued at Discharge Congestive Heart Failure Inclusion Criteria At DC or during hospital stay patient has or had the following: CHF DIAGNOSIS No Discharge Core Measures Meds if any: Prescribed or Continued at Discharge Meds if any: NOT Prescribed or Continued at Discharge Cerebrovascular accident Inclusion Criteria At DC or during hospital stay patient has or had the following: CVA/TIA Diagnosis No Discharge Core Measures Meds if any: Prescribed or Continued at Discharge Meds if any: NOT Prescribed or Continued at Discharge Venous thromboembolism Inclusion Criteria VTE Diagnosis No VTE Type NONE VTE Confirmed by (Test) NONE Discharge Core Measures - Per Current guidelines, there needs to be overlap - treatment for the first 5 days of Warfarin therapy. - If discharged on Warfarin prior to 5 days of - overlap therapy, the patient will need to be - assessed for post discharge needs including - *Post discharge parental anticoagulation - *Warfarin and/or parental anticoagulation education - *Follow up date to check INR post discharge At least 5 days overlap therapy as Inpatient No Meds if any: Prescribed or Continued at Discharge Note: Overlap Therapy is Warfarin and Anticoagulant Meds if any: NOT Prescribed or Continued at Discharge
[2016-09-19 08:22] LABS: ABSOLUTE BASOPHIL COUNT 0 /CUMM (0.0-0.2); ABSOLUTE EOSINOPHIL COUNT 0 /CUMM (0.0-0.7); ABSOLUTE LYMPH COUNT 1.3 /CUMM (1.2-3.4); BASOPHIL % 0.2 % (0.0-2.0); EOSINOPHIL % 0 % (0-5); GRANULOCYTE % 30.7 % (42.2-75.2); MEAN CORPUSCULAR HGB 30.9 PG (27.0-31.0); MEAN CORPUSCULAR HGB CONC 33.4 G/DL (33.0-37.0); MEAN CORPUSCULAR VOLUME 92.6 FL (81.0-99.0); MEAN PLATELET VOLUME 7.1 FL (7.4-10.4); PLATELET COUNT 511 /CUMM (130-400); RBC DISTRIBUTION WIDTH 32.9 % (11.5-14.5); WHITE BLOOD CELL COUNT 3.3 /CUMM (4.8-10.8)
--- NOTE | 2016-09-19 08:54 | PN- Housestaff ---
Subjective Follow-up For: Pancytopenia, Hyperthyroidism, Subjective: Pt states she feels much better after receiving the transfusions. Pt denies chest pain, SOB, fever, chills, abdominal pain, n/v/c/d, dysuria/hematuria. Pt denies any thyroid symptoms: sweating, hot/cold intolerance, diarhhea/ constipation, swelling of feet, palpitations, change in skin/hair, visual disturbances. Review of Systems Constitutional: Denies: see HPI. Objective Last 24 Hrs of Vital Signs/I&O Vital Signs Date Time Temp Pulse Resp B/P B/P Pulse O2 O2 Flow FiO2 Mean Ox Delivery Rate 09/19 1516 98.0 86 20 128/60 97 Room Air 09/19 1002 84 122/68 09/19 0701 99.8 96 20 142/72 92 Room Air 09/18 2247 99.8 93 20 122/58 94 Intake & Output 09/19 1600 09/19 0800 09/19 0000 Intake Total 2160 10 350 Output Total 550 300 350 Balance 1610 -290 0 Intake, Blood 350 Product Intake, IV 0 10 Intake, Oral 2160 Number 0 Bowel Movements Output, Urine 550 300 350 Physical Exam General Appearance: Alert, Oriented X3, No Acute Distress HEENT: Atraumatic, PERRLA, EOMI, Mucous Membr. moist/pink Cardiovascular: Regular Rate, Normal S1, Normal S2 Lungs: Clear to Auscultation Abdomen: Normal Bowel Sounds, Soft, No Tenderness Neurological: Normal Gait, Normal Speech Extremities: No Edema, Normal Pulses Assessment/Plan Assessment: 60-year-old female with past medical history significant for diabetes, hyperlipidemia, hypertension, who comes in for chief complaint of malaise and found to have profound anemia, leukopenia and thrombocytosis. 1. Bicytopenia with thrombocytosis: She has no hx of any known hemetologic aberations and her symptom onset seems rather abrupt suggesting a new disease process. Patient has hemoglobin 5.2, hematocrit 15.3, white count 2.2 and thrombocytosis. * pt's h/h after pRBC transfusions: 8.0/24 today * pt's WBC has been trending up: 3.3 today * pt's platelet count is improving * TSH: <0.015- hyperthyroid- although an uncommon cause anemia could be possible etiology * B12 >1000, folate >20 - r/o deficiencies due to macrocytosis * iron levels are normal * pt does not appear to have extensive hemolysis as LDH is normal, however bili elevated at 2.4 * stool guiac negative x2 * patient * hematology: appreciate recommendations, as per Dr. Marques: - Follow up flow cytometry - Follow up EBV, CMV, [id number] - Follow up SPEP, UPEP - May need bone marrow if worsening counts - pt should follow up outpatient - appears to be related to bone marrow suppression - pt does not require inpatient treatment at this time and should follow up outpatient 2. Hyperthyoid: * TSH: <0.015 * will order T3, T4, Thyrogolbulin antibody, thyroid peroxidase Ab * CT: showing nodular thyroid * will order thyroid ultrasound * will follow up outpatient with endocrinology 3. Hypercalcemia: Patient comes in with calcium 10.7 no intervention necessary at this time. Could be secondary to underlying process leading to anemia. * Continue to monitor 4. Diabetes: Chronic and stable. Patient takes Janumet at home. We will hold at this time * Regular insulin sliding scale * Diabetic diet * Fingerstick 5. HTN: Chronic and stable. * We will give the equivalent to her home Benicar dose 6. Hyperlipidemia: Chronic and stable * Continue Crestor Code: FULL CODE Diet: REGULAR DVT PPx: ALPS (no pharmacologic intervention due to anemia) Dispo: discharge today pending ultrasound Problem List: 1. Anemia 2. Leukopenia 3. Thrombocytosis 4. Hyperthyroidism Pain Ratin Pain Location: none Pain Goal: Remain pain free Pain Plan: none Tomorrow's Labs & Rationales: none Consulting Request: Consulting Specialty: Hematology/Oncology
--- NOTE | 2016-09-19 09:48 | PN- Att Addend ---
Attending Addendum Attending Brief Note Patient this morning complains of persistent weakness although improved. General Appearance: Alert, No Acute Distress Skin: Grossly normal HEENT: PEERLA Neck: Supple, No JVD Cardiovascular: Regular Rate, Normal S1, Normal S2, No Murmurs Lungs: Clear to Auscultation, Normal Air Movement Abdomen: Normal Bowel Sounds, Soft, No Tenderness Neurological: Normal Speech, Strength at 5/5 X4 Ext, Cranial Nerves 3-12 NL, Reflexes 2+ Extremities: No Clubbing, No Cyanosis, No Edema Vascular: Normal Pulses Assessment Possible MDS however much of the blood work is pending at this point including flow cytometry and SPEP. As per hematology she will need further workup as outpatient including bone marrow biopsy. CAT scan abdomen chest and pelvis negative for malignancy or organomegaly however she does have a lung nodule which will need a follow-up CT scan of chest in 6 months with contrast and also the suggestion of multinodular thyroid and low TSH levels suggesting thyrotoxicosis state. We will check an ultrasound of her thyroid and do a complete thyroid function including thyroid antibodies. Plan Check thyroid ultrasound prior to discharge Check complete thyroid function test and thyroid antibodies Follow hematology recommendations Continue other home medication DVT prophylaxis Current Medications Sig/Michael Start time Last Medication Dose Route Stop Time Status Admin Acetaminophen 650 MG Q6P PRN 09/17 1630 AC 09/19 PO 0639 Acetaminophen 1,000 MG Q6P PRN 09/17 1630 AC IV Atorvastatin Calcium 40 MG 1700 09/18 1700 AC 09/18 PO 1702 Insulin Aspart 0 AT BEDTIME 09/18 2215 AC 09/18 PR 2211 Insulin Aspart 0 TIDAC 09/18 0800 AC 09/19 PR 0831 Losartan Potassium 50 MG DAILY 09/18 1000 AC 09/18 PO 1006 Morphine Sulfate 2 MG Q4P PRN 09/17 1630 AC IV Patient Medication 1 ED .STK-MED ONE 09/18 1359 VT Teaching ED 09/18 1400 Laboratory Tests 09/19 09/18 0628 1935 Chemistry Sodium (137 - 145 mmol/L) 137 Potassium (3.5 - 5.1 mmol/L) 4.7 Chloride (98 - 107 mmol/L) 102 Carbon Dioxide (22 - 30 mmol/L) 25 Anion Gap (5 - 16) 10 BUN (7 - 17 mg/dL) 16 Creatinine (0.5 - 1.0 mg/dL) 0.7 Estimated GFR (>60 ml/min) > 60 BUN/Creatinine Ratio (7 - 25 %) 22.9 Prot Electrophoresis Pending Total Protein (PEP) Pending Albumin % (PEP) Pending [id number] Pending Hmclz-0-Pplhdxprs Pending Jbly-7-Vmsnrplt Pending Eyoq-1-Ukhqesvb Pending Gamma Globulins Pending Abnorm Protein Band 1 Pending Abnorm Protein Band 2 Pending Abnorm Protein Band 3 Pending TSH (0.270 - 4.200 uIU/mL) < 0.015 L Hematology CBC w Diff MAN DIFF ORDERED MAN DIFF ORDERED WBC (4.8 - 10.8 /CUMM) Pending 2.9 L RBC (4.20 - 5.40 /CUMM) Pending 2.65 L Hgb (12.0 - 16.0 G/DL) Pending 8.2 L Hct (37 - 47 %) Pending 24.4 L MCV (81.0 - 99.0 FL) Pending 92.0 MCH (27.0 - 31.0 PG) Pending 30.9 RDW (11.5 - 14.5 %) Pending 33.1 H Plt Count (130 - 400 /CUMM) Pending 584 H MPV (7.4 - 10.4 FL) Pending 7.1 L Gran % (42.2 - 75.2 %) Pending 33.7 L Lymphocytes % (20.5 - 51.1 %) Pending 43.1 Monocytes % (1.7 - 9.3 %) Pending 22.0 H Eosinophils % (0 - 5 %) Pending 0.1 Basophils % (0.0 - 2.0 %) Pending 1.1 Absolute Granulocytes (1.4 - 6.5 /CUMM) Pending 1.0 L Segmented Neutrophils (42.2 - 75.2 %) Pending 28 L Band Neutrophils (0.0 - 5.0 %) Pending Absolute Lymphocytes (1.2 - 3.4 /CUMM) Pending 1.3 Lymphocytes (20.5 - 51.1 %) Pending 70 H Monocytes (1.7 - 9.3 %) Pending 2 Absolute Monocytes (0.10 - 0.60 /CUMM) Pending 0.6 Absolute Eosinophils (0.0 - 0.7 /CUMM) Pending 0 Absolute Basophils (0.0 - 0.2 /CUMM) Pending 0 Platelet Estimate (ADEQUATE) Pending INCREASED Hypochromic-Microcytic Pending 1+ Poikilocytosis 1+ Anisocytosis Pending Microcytic Cells 1+ Stomatocytes Pending 1+ PUBS MCHC (33.0 - 37.0 G/DL) Pending 33.6 Miscellaneous Ref Lab Test Result Pending Other Body Source Serum IgG Pending Serology CMV IgG Ab Pending CMV IgM Ab Pending EBV Capsid Ag IgG Ab Pending EBV Capsid Ag IgM Ab Pending EBV Nuclear Ag IgG Ab Pending EBV Interpretation Pending Hepatitis A IgM Ab (NONREACTIVE) Pending Hep Bs Antigen (NONREACTIVE) NONREACTIVE Hep B Core IgM Ab Conf (NONREACTIVE) Pending Hepatitis C Antibody (NONREACTIVE) Pending Parvovirus B19 IgG Ab Pending Parvovirus B19 IgM Ab Pending Vital Signs Date Time Temp Pulse Resp B/P B/P Pulse O2 O2 Flow FiO2 Mean Ox Delivery Rate 09/19 0701 99.8 96 20 142/72 92 Room Air 09/18 2247 99.8 93 20 122/58 94 09/18 1417 98.7 90 20 124/52 92 Room Air 09/18 1006 112/62
--- NOTE | 2016-09-19 11:21 | PN- Hematology ---
Subjective Subjective: She had one more blood transfusion yesterday. She feels better. She did have a headache earlier. This has improved. She has no new fever or chills. She has no nausea or vomiting. She has no diarrhea. She has no constipation. She has no check pain. She has no abdominal pain. Review of Systems Constitutional: Denies: chills, diaphoresis, fever, malaise. Cardiovascular: Denies: chest pain. Respiratory: Denies: short of breath. Gastrointestinal: Denies: abdominal pain. Genitourinary: Denies: dysuria. Musculoskeletal: Denies: back pain. Skin: Denies: rash. Neurological/Psychological: Reports: headache. All Other Systems: Reviewed and Negative Objective Vital Signs and I&Os Vital Signs Date Time Temp Pulse Resp B/P B/P Pulse O2 O2 Flow FiO2 Mean Ox Delivery Rate 09/19 0701 99.8 96 20 142/72 92 Room Air 09/18 2247 99.8 93 20 122/58 94 09/18 1417 98.7 90 20 124/52 92 Room Air 09/18 1006 112/62 Intake & Output 09/19 1600 09/19 0800 09/19 0000 09/18 1600 09/19 0700 09/18 0000 Intake Total 10 350 700 700 Output Total 300 350 Balance -290 0 700 700 Intake, Blood 350 Product Intake, IV 10 0 350 Intake, Oral 700 350 Output, Urine 300 350 Patient 79.379 kg Weight Weight Reported by Patient Measurement Method Physical Exam: General Appearance: well developed/nourished, no apparent distress, alert, awake , comfortable Head: atraumatic, normal appearance Neck: normal inspection, supple Respiratory: normal breath sounds, chest non-tender, no respiratory distress Cardiovascular: regular rate/rhythm, murmur Gastrointestinal: normal bowel sounds, soft, non-tender Extremities: no edema, right thumb with bruising Neurologic/Psych: awake, alert, oriented x 3 Cranial Nerves: normal hearing, normal speech Lymphatic: no adenopathy in the cervical, supraclavicular, axilla, inguinal regions. Current Medications: Current Medications Sig/Michael Start time Last Medication Dose Route Stop Time Status Admin Acetaminophen 650 MG Q6P PRN 09/17 1630 AC / PO 0639 Acetaminophen 1,000 MG Q6P PRN 09/17 1630 AC IV Atorvastatin Calcium 40 MG 1700 09/18 1700 AC 09/18 PO 1702 Insulin Aspart 0 AT BEDTIME 09/18 2215 AC 09/18 SC 2211 Insulin Aspart 0 TIDAC 09/18 0800 AC 09/19 SC 0831 Losartan Potassium 50 MG DAILY 09/18 1000 AC 09/18 PO 1006 Morphine Sulfate 2 MG Q4P PRN 09/17 1630 AC IV Patient Medication 1 ED .STK-MED ONE 09/18 1359 [place] Teaching ED 09/18 1400 Results Last 24 Hours of Lab Results: Laboratory Tests 09/19 09/18 0628 1935 Chemistry Sodium (137 - 145 mmol/L) 137 Potassium (3.5 - 5.1 mmol/L) 4.7 Chloride (98 - 107 mmol/L) 102 Carbon Dioxide (22 - 30 mmol/L) 25 Anion Gap (5 - 16) 10 BUN (7 - 17 mg/dL) 16 Creatinine (0.5 - 1.0 mg/dL) 0.7 Estimated GFR (>60 ml/min) > 60 BUN/Creatinine Ratio (7 - 25 %) 22.9 Prot Electrophoresis Pending Total Protein (PEP) Pending Albumin % (PEP) Pending Kcerh-3-Vbqkddxtj Pending Qyhfi-7-Ltqfgdszq Pending Rsal-1-Izqkpgko Pending Sshj-1-Qhngfmde Pending Gamma Globulins Pending Abnorm Protein Band 1 Pending Abnorm Protein Band 2 Pending Abnorm Protein Band 3 Pending TSH (0.270 - 4.200 uIU/mL) Pending Hematology CBC w Diff MAN DIFF ORDERED MAN DIFF ORDERED WBC (4.8 - 10.8 /CUMM) Pending 2.9 L RBC (4.20 - 5.40 /CUMM) Pending 2.65 L Hgb (12.0 - 16.0 G/DL) Pending 8.2 L Hct (37 - 47 %) Pending 24.4 L MCV (81.0 - 99.0 FL) Pending 92.0 MCH (27.0 - 31.0 PG) Pending 30.9 RDW (11.5 - 14.5 %) Pending 33.1 H Plt Count (130 - 400 /CUMM) Pending 584 H MPV (7.4 - 10.4 FL) Pending 7.1 L Gran % (42.2 - 75.2 %) Pending 33.7 L Lymphocytes % (20.5 - 51.1 %) Pending 43.1 Monocytes % (1.7 - 9.3 %) Pending 22.0 H Eosinophils % (0 - 5 %) Pending 0.1 Basophils % (0.0 - 2.0 %) Pending 1.1 Absolute Granulocytes (1.4 - 6.5 /CUMM) Pending 1.0 L Segmented Neutrophils (42.2 - 75.2 %) Pending 28 L Absolute Lymphocytes (1.2 - 3.4 /CUMM) Pending 1.3 Lymphocytes (20.5 - 51.1 %) 70 H Monocytes (1.7 - 9.3 %) 2 Absolute Monocytes (0.10 - 0.60 /CUMM) Pending 0.6 Absolute Eosinophils (0.0 - 0.7 /CUMM) Pending 0 Absolute Basophils (0.0 - 0.2 /CUMM) Pending 0 Platelet Estimate (ADEQUATE) INCREASED Hypochromic-Microcytic 1+ Poikilocytosis 1+ Microcytic Cells 1+ Stomatocytes 1+ PUBS MCHC (33.0 - 37.0 G/DL) Pending 33.6 Miscellaneous Ref Lab Test Result Pending Other Body Source Serum IgG Pending Serology CMV IgG Ab Pending CMV IgM Ab Pending EBV Capsid Ag IgG Ab Pending EBV Capsid Ag IgM Ab Pending EBV Nuclear Ag IgG Ab Pending EBV Interpretation Pending Hepatitis A IgM Ab (NONREACTIVE) Pending Hep Bs Antigen (NONREACTIVE) Pending Hep B Core IgM Ab Conf (NONREACTIVE) Pending Hepatitis C Antibody (NONREACTIVE) Pending Parvovirus B19 IgG Ab Pending Parvovirus B19 IgM Ab Pending Recent Imaging Studies: CT chest/abdomen/pelvis 09/18/2016: 1. Enlarged, multinodular thyroid gland. Correlate with thyroid function tests, and thyroid ultrasound, as deemed clinically appropriate. 2. A smoothly marginated 1.1 x 0.7 x 0.4 cm nodule along the minor fissure is very likely a perifissural lymph node. Nevertheless, recommend noncontrast chest CT follow-up in 6 months to ensure stability. 3. 1.6 cm or hypodense subcapsular lesion near the hepatic dome is probably a cavernous hemangioma but is not well characterized on this single phase imaging exam. 4. No evidence of multiple myeloma. No aggressive osseous lesions. Assessment/Plan Assessment/Recommendations: Ms. Anderson is a 60-year-old female with history of diabetes who presented to the hospital with symptomatic anemia and leukopenia. Besides fatigue, she is asymptomatic. She has no B symptoms such as weight loss, night sweats, fevere, or decreased appetite. She reports no new mass or pain. She has no evidence of bleeding. On presentation she has WBC of 2200 with 30% monocytes, Hgb 5.2 g/dL, Hct 15.3%, and platelet of 603,000. Peripheral blood smear was reviewed yesterday and noted atypical lymphocytes, increase platelets with few giant platelets, anisocytosis, and poikilocytosis. Her reticulocytes are low. This seems to be related to a marrow suppressive effect. She has no obvious nutritional deficiency with vitamin B12, folate, and iron studies being normal. She has no significant evidence of hemolysis. LDH is normal. Bilirubin is elevated at 1.8. Given all these finding, there may be an underlying marrow process. CT demonstrates some thyroid nodules. TSH is extremely suppressed. Extreme hypothyroidism may cause severe anemia, reactive thrombocytosis, and leukopenia. Autoimmune etiology is also a possibility. Blood work is pending for MM workup. Viral etiology is pending. She may ultimately need BM biopsy but counts are improving. 1. Follow up flow cytometry 2. Follow up EBV, CMV, [id number] 3. Follow up SPEP, UPEP 4. May need bone marrow if worsening counts Please call [phone] with any questions or concerns. Problem List: 1. Thrombocytosis 2. Anemia 3. Leukopenia
[2016-09-19 15:16] VITALS: BP 128/60
--- NOTE | 2016-09-19 18:53 | ULTRASOUND REPORT ---
EXAMINATION: US THYROID CLINICAL INFORMATION: Enlarged multinodular thyroid on CT. COMPARISON: Selected portions of CT TECHNIQUE: Linear transducer andersen-scale and color Doppler examination with attention to the region of the thyroid. FINDINGS: SIZE: Measurements of the thyroid lobes and nodules are given in sagittal, anteroposterior and transverse dimensions respectively. Right Thyroid Lobe: 7.0 x 3.2 x 3.2 cm, volume 33 mL. Left Thyroid Lobe: 6.1 x 2.6 x 2.5 cm, volume 20 mL. Isthmus: 1.3 cm in maximum AP dimension. PARENCHYMA: The gland echotexture is heterogeneous. Thyroid vascularity is increased. The gland is enlarged and heterogeneous with multiple areas of altered echotexture. Individual nodules are difficult to identify and measure. Several focal abnormalities as described below RIGHT THYROID LOBE: 4 right lobe nodules Location: Upper pole Size: 1.1 x 0.7 x 0.8 cm. Shape: [place], circumscribed Echotexture: Complex cyst which is at least 80% cystic. Calcifications: No suspicious calcifications Vascularity: Color signal present Posterior features: Enhancement Location: Junction of upper pole with interpolar region Size: 2.1 x 1.7 x 2.0 cm. Shape: Circumscribed rounded nodule Echotexture: Complex solid and cystic mass. There are linear septations and hypoechoic solid areas Calcifications: None Vascularity: Color signal present Posterior features: Enhancement Location: Junction of the interpolar region with lower pole Size: 1.1 x 0.7 x 1.1 cm. Shape: [place], circumscribed Echotexture: Heterogeneous solid Calcifications: None Vascularity: Color signal present Posterior features: None Location: Lower pole Size: 2.4 x 2.4 x 1.9 cm. Shape: Rounded mass. Echotexture: Difficult to assess due to position and depth. Slightly heterogeneous solid mass Calcifications: None Vascularity: No suspicious color signal Posterior features: None ISTHMUS: There are 2 nodules Location: Right side of isthmus Size: 1.4 x 1.2 x 1.7 cm Shape: [place], circumscribed Echotexture: Echogenic heterogeneous solid mass Calcifications: None Vascularity: Color signal present Posterior features: None Location: Left side of isthmus Size: 1.3 x 1.0 x 1.2 cm Shape: [place], circumscribed Echotexture: Slightly heterogeneous solid circumscribed nodule Calcifications: There are some bright reflectors which could be microcalcifications Vascularity: Color signal present Posterior features: None LEFT THYROID LOBE: There are 4 left lobe nodules Location: Upper pole Size: 2.2 x 1.5 x 2.0 cm Shape: Rounded fairly circumscribed Echotexture: Heterogeneous solid mass with mixed internal echogenicity Calcifications: There are a few scattered bright reflectors which could be microcalcifications Vascularity: Color signal present Posterior features: Mixed posterior pattern Location: Junction of upper pole with interpolar region Size: 1.1 x 1.1 x 1.1 cm. Shape: Rounded Echotexture: Heterogeneous mostly solid nearly isoechoic nodule with a peripheral cystic area Calcifications: None Vascularity: No suspicious color signal Posterior features: None Location: Interpolar region Size: 1.9 x 1.6 x 1.7 cm Shape: Rounded with circumscribed margins Echotexture: Heterogeneous mostly solid nodule with a few scattered anechoic spaces Calcifications: There are some bright reflectors which could be microcalcification Vascularity: Color signal present Posterior features: None Location: Lower pole Size: 1.1 x 1.4 x 1.3 cm Shape: Round Echotexture: Echogenic solid nodule with poorly defined margins Calcifications: None Vascularity: No suspicious color signal Posterior features: None NODES: No lymphadenopathy is seen in the tissue surrounding the thyroid gland. IMPRESSION: Large heterogeneous gland with multiple focal areas of altered echotexture. Several nodules in each lobe are described above. The largest nodule on the right has a mean diameter of close to 2.3 cm The largest nodule on the left has a mean diameter of 1.9 cm Recommend ultrasound-guided sampling of the most suspicious nodule on each side.
[2016-09-23 21:21] LABS: CYTOMEGALOVIRUS ANTIBODY IGG <0.60 U/mL (()); CYTOMEGALOVIRUS ANTIBODY IGM <30.00 AU/mL (())
--- NOTE | 2016-09-24 11:48 | Discharge Summary ---
Visit Information Visit Dates Admission Date: 09/17/16 Discharge Date: 09/19/16 Hospital Course Course Attending Physician: INOCENTE GUIDO MD Primary Care Physician: TIFF COLLADO MD Consulting Request: Consulting Specialty: Hematology/Oncology Consulting Physician: Geovanny Zimmer MD Hospital Course: 60-year-old female with past medical history significant for diabetes, hyperlipidemia, hypertension, who comes in for chief complaint of malaise. She was sent in by Tiff Collado MD for profound anemia, leukopenia and thrombocytosis. 1. Symptomatic anemia with thrombocytosis: She has no hx of any known hemetologic aberations and her symptom onset seems rather abrupt suggesting a new disease process. Patient has hemoglobin 5.2, hematocrit 15.3, white count 2.2 and thrombocytosis. Workup for nutritional deficiency was negative. She did not demonstrate evidence of hemolysis with a normal LDH levels. However her total bilirubin was elevated at 2.4. Stool guiac negative x2. Patient was followed by Dr. Marques recommended extensive workup including flow cytometry, viral titers, SPEP and UPEP. Much of the workup was pending at the time of discharge. However her symptoms improved with blood transfusions 3. Patient was stable for discharge and will follow with the field agronomist as outpatient. CT scan chest, abdomen and pelvis did not show occult malignancy like multiple myeloma or organomegaly. 2. Hyperthyoid state [place] CAT scan suggested multinodular thyroid gland. TSH was low suggesting hyperthyroid state. However other thyroid function was within normal limits. Ultrasound thyroid gland demonstrated multiple thyroid nodules with recommendations for thyroid biopsy. This will be arranged as outpatient. 3. Lung nodule CAT scan chest showed a smoothly marginated 1.1 x 0.7 x 0.4 cm nodule along the minor fissure Which was very likely a perifissural lymph node. Recommendations were made for follow-up noncontrast CT chest in 6 months to ensure stability. 4. Cavernous hemangioma CAT scan abdomen and pelvis showed a 1.6 cm or hypodense subcapsular lesion near the hepatic dome which is probably a cavernous hemangioma. Allergies: Coded Allergies: No Known Allergies (07/28/15) Significant Procedures: CAT scan chest abdomen and pelvis IMPRESSION: 1. Enlarged, multinodular thyroid gland. Correlate with thyroid function tests, and thyroid ultrasound, as deemed clinically appropriate. 2. A smoothly marginated 1.1 x 0.7 x 0.4 cm nodule along the minor fissure is very likely a perifissural lymph node. Nevertheless, recommend noncontrast chest CT follow-up in 6 months to ensure stability. 3. 1.6 cm or hypodense subcapsular lesion near the hepatic dome is probably a cavernous hemangioma but is not well characterized on this single phase imaging exam. 4. No evidence of multiple myeloma. No aggressive osseous lesions. Thyroid ultrasound IMPRESSION: Large heterogeneous gland with multiple focal areas of altered echotexture. Several nodules in each lobe are described above. The largest nodule on the right has a mean diameter of close to 2.3 cm The largest nodule on the left has a mean diameter of 1.9 cm Recommend ultrasound-guided sampling of the most suspicious nodule on each side. Disposition Summary Disposition Principal Diagnosis: Symptomatic anemia and leukopenia Additional Diagnosis: Thyroid nodules Lung nodule Cavernous hemangioma of the liver Discharge Disposition: home or self care Discharge Instructions General Discharge Information Code Status: Full Code Patient's Diet: Heart healthy diet Patient's Activity: As tolerated Follow-Up Instructions/Appts: Follow-up with the oncologist as outpatient to discuss pending workup. She will need outpatient repeat CAT scan chest in 6 months and also thyroid nodule biopsy. Medications at Discharge Discharge Medications: Continue taking these medications: Sitagliptin Phos/Metformin HCl (Janumet 50-1,000 MG Tablet) 50 MG-1,000 MG TABLET 1 Tablet ORAL TWICE DAILY Qty = 60 Comments: NOT GIVEN IN HOSPITAL Rosuvastatin Calcium (Crestor) 10 MG TABLET 1 Tablet ORAL DAILY Qty = 30 Comments: NOT GIVEN IN HOSPITAL LIPITOR GIVEN Last Taken: 09/18/16 Time: 5:00 PM Olmesartan Medoxomil (Benicar) 20 MG TABLET 1 Tablet ORAL DAILY Qty = 30 Comments: NOT GIVEN IN HOSPITAL Cholecalciferol (Vitamin D3) 1,000 UNIT TABLET 1 Tablet ORAL DAILY Comments: NOT GIVEN IN HOSPITAL Cyanocobalamin (Vitamin B-12) 1,000 MCG TABLET 1 Tablet ORAL DAILY Comments: NOT GIVEN IN HOSPITAL Multivits,Ca,Minerals/Iron/FA (Women's Daily Caplet) 27 MG IRON-400 MCG TABLET 1 Tablet ORAL DAILY Comments: NOT GIVEN IN HOSPITAL Copies To: SAMANTA MORTON,GEOVANNY Attending MD Review Statement Documenting Attending: INOCENTE GUIDO MD
== END 2016-09-19 19:00 | DRG 812 ==
LOC: DELPENDDIS → ERH 12:31 → 2NB 14:23 → ERHI 14:23 → ENRESERV 17:14 → ENTRNSPT 17:34 → 2NB 18:18 → CMPTRNSPT 18:32 → 2NB 09-19 09:18 → ENPENDDIS 09-19 09:36 → 2NB 09-19 19:00
PROVIDERS: Internal Medicine; Physician Assistant; Student in an Organized Health Care Education/Training Program; ADMIT Internal Medicine
PROC: 30233N1 Transfusion of Nonautologous Red Blood Cells into Peripheral Vein, Percutaneous Approach (ICD-10-PCS; principal; 2016-09-17)
DX: D64.9 Anemia, unspecified (principal); E83.52 Hypercalcemia; I10 Essential (primary) hypertension; D47.3 Essential (hemorrhagic) thrombocythemia; E78.5 Hyperlipidemia, unspecified; E05.90 Thyrotoxicosis, unspecified without thyrotoxic crisis or storm; D61.818 Other pancytopenia
CPT/HCPCS: 2NBSP; 86644; 86645; 36415; 74177; 82436; 82784; 84165; 84166; 86376; 86800; 86920; 87389; 88184; 93005; 93010; 96361; 96374; J0131; P9016